=== PATIENT | male | born 1975 | race Caucasian/White ===

== ENCOUNTER → 2019-10-22 11:07 | Outpatient (CLI) | payer BC, SELFPAY ==
[2019-10-23 07:21] LABS: SARS-COV-2 TOTAL ABS Nonreactive (Nonreactive)
[2019-10-24 21:14] LABS: SAR-COV-2 IGG ANTIBODY Negative (Negative); SAR-COV-2 IGM ANTIBODY Negative (Negative)
== END ==
PROVIDERS: Referring Provider Psychiatry & Neurology Psychiatry; Visit Provider Psychiatry & Neurology Psychiatry
DX: J06.9 Acute upper respiratory infection, unspecified (principal)
CPT/HCPCS: 86769; G2023